=== PATIENT | male | born 1960 | race Caucasian/White ===

== ENCOUNTER 2020-02-11 15:52 | Observation (INO) | payer OTHER, SELFPAY ==
--- NOTE | ~2020-02-11 | CT_ITS ---
EXAMINATION: CTA brain carotid DATE: 02/12/2020 18:43 INDICATION: Transient ischemic attack, transient amnesia TECHNIQUE: Computed tomographic angiography (CTA) of the head was performed without and with 100 mL O mnipaque-350 intravenous contrast. CTA of the neck was performed with intravenous contrast. The dose- length product was 1973.20 mGy-cm. Maximum intensity projection and volume rendered 3D-reconstruction s were created by the technologist on a separate workstation. Automated exposure control and iterativ e reconstruction technique were employed. COMPARISON: None. FINDINGS: HEAD CTA: There is no intracranial hemorrhage, acute infarction, or abnormal mass lesion. The ventric les are normal. There is no abnormal mass effect or midline shift. The jose-white matter differentiat ion is normal. The basal cisterns are patent. The orbits are normal. There is mild mucosal thickening of the paranasal sinuses. There is no significant stenosis of the basilar artery or posterior cerebral arteries. There is no si gnificant stenosis of the intracranial internal carotid arteries or the anterior or middle cerebral a rteries. The anterior communicating artery and posterior communicating arteries are normal. There is no aneurysm. NECK CTA: There is a 5 mm nodule of the right thyroid lobe. The submandibular and parotid glands are symmetric. There is no lymphadenopathy. There are no masses identified. The airway is unremarkable. T here is mild cervical spondylosis.. The superior mediastinum is unremarkable. There is 0% stenosis of the proximal right internal carotid artery relative to normal distal artery l umen diameter (NASCET criteria). There is 0% stenosis of the proximal left internal carotid artery re lative to normal distal artery lumen diameter. IMPRESSION: 1. No acute intracranial abnormality. Normal head CTA. 2. 0% stenosis of the proximal right internal carotid artery relative to normal distal artery lumen d iameter (NASCET criteria). 3. 0% stenosis of the proximal left internal carotid artery relative to normal distal artery lumen di ameter. Reviewed, dictated and finalized at location A. IMPRESSION: 1. No acute intracranial abnormality. Normal head CTA. 2. 0% stenosis of the proximal right internal carotid artery relative to normal distal artery lumen diameter (NASCET criteria). 3. 0% stenosis of the proximal left internal carotid artery relative to normal distal artery lumen diameter.
--- NOTE | ~2020-02-11 | US_ITS ---
EXAMINATION: US carotid duplex BI DATE: 02/12/2020 10:58 INDICATION: Transient amnesia. TECHNIQUE: Grayscale, color Doppler, and pulsed Doppler images of the cervical carotid arteries were obtained. The degree of vessel stenosis is placed in one of the following categories: normal, <50%, 5 0-69%, >=70% but less than near-occlusion, near-occlusion, or total occlusion. Note that percent sten osis relative to normal distal artery lumen diameter is indirectly measured from velocity measurement s as described by Dev, et al. Radiology 2003; 229:340-346. COMPARISON: None. FINDINGS: RIGHT: The right common carotid artery (CCA) peak systolic velocity (PSV) is 81 cm/s. The right internal car otid artery (ICA) PSV is 76 cm/s. The right ICA end-diastolic velocity (EDV) is 29 cm/s. The right IC A/CCA PSV ratio is 0.9. Grayscale and color Doppler images yield an estimate of <50% diameter reducti on from plaque in the ICA. There is antegrade flow in the right vertebral artery. LEFT: The left CCA PSV is 97 cm/s. The left ICA PSV is 95 cm/s. The left ICA EDV is 45 cm/s. The left ICA/C CA PSV ratio is 1.0. Grayscale and color Doppler images yield an estimate of <50% diameter reduction from plaque in the ICA. There is antegrade flow in the left vertebral artery. IMPRESSION: 1. <50% stenosis in the right internal carotid artery. 2. <50% stenosis in the left internal carotid artery. Reviewed, dictated and finalized at location E.
--- NOTE | ~2020-02-11 | MR_ITS ---
EXAMINATION: MR brain/brain stem wo/w con DATE: 02/12/2020 10:28 INDICATION: Transient amnesia. TECHNIQUE: Magnetic resonance imaging (MRI) of the brain and brainstem was performed without and with 19 mm MultiHance intravenous contrast. Sequences included sagittal and axial T1-weighted FSE, axial diffusion-weighted FS EPI, axial T2*-weighted GRE, axial T2-weighted FLAIR Propeller, and axial T2-we ighted Propeller. Postcontrast sequences included axial and coronal T1-weighted FSE. Apparent diffusi on coefficient (ADC) maps were created. COMPARISON: None. FINDINGS: There is no intracranial hemorrhage, acute infarction, or abnormal intracranial mass lesion . The ventricles are normal in size. The paranasal sinuses are clear. The orbits are normal. The mast oid air cells are normal. IMPRESSION: 1. Normal brain. Reviewed, dictated and finalized at location E. IMPRESSION: 1. Normal brain.
--- NOTE | 2020-02-11 15:58 | ADMGEN ---
This patient, Nicko Villalobos, was admitted to Medical Room 251-. Patient/family oriented to hospital policies and general routines including ID bracelet, bed and alarms, visiting hours, pain management, procedures, bathroom and other care routines, personal items, smoking policy, room service/diet, and visiting hours. Valuables list has been completed. Information on how to activate the Rapid Response Team has been discussed. Patient/Family are encouraged to report perceived risks to care and to ask questions if they do not understand what they are told or what they should do.
[2020-02-11 16:00] VITALS: BP 125/83; PULSE 60; RESP 16; TEMP 36.6; O2SAT 97; BMI 28.0
--- NOTE | 2020-02-11 16:15 | PM.IMHP ---
H&P: HPI History of Present Illness Chief complaint: Transient amnesia. Narrative: Nicko Villalobos is a very pleasant 59-year-old male with a previous episode of transient global amnesia, hypertension, hyperlipidemia, and benign prostatic hyperplasia who is being directly admitted to the hospitalist service from the emergency department [facility] in [place] for further evaluation of transient amnesia. Due to lack of MRI at [facility] this weekend, he is being transferred to [place] in this setting for imaging. Shortly after having sexual intercourse with his , he was found staring out of their kitchen window at a large pile of rocks on their patio, confused by their presence. His reminded him that they were in the process of renovating their patio and he could not recall this fact for approximately 30 minutes time. 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 A similar episode of transient amnesia occurred after sexual intercourse in September of 2013 and he was seen by neurologist in [facility], who diagnosed him with transient global amnesia. At the time of my evaluation he has no complaints, and all memories have returned except for the 30 minute period of confusion earlier this morning. He denies headache, vertigo, auditory and visual changes, focal weakness, paresthesias, head trauma, loss of consciousness, chest pain, and palpitations. Review of Systems Review of Systems: Narrative: Twelve systems were reviewed with pertinent positives and negatives as per HPI. No fever, chills, or sweats. No recent cold or flu symptoms. He denies travel and sick contacts. No cough or shortness of breath. No history of obstructive sleep apnea. He denies lightheadedness and dizziness. Appetite has been good and weight has been stable. No nausea, vomiting, or diarrhea. No dysuria or hematuria. He reports nocturia, 1 to 2 times per night for which she takes finasteride. No thyroid disease. No history of venous thromboembolism. Except as documented, all other systems were reviewed and are negative. [facility] Past Medical History Medical History (Updated 02/11/20 @ 16:54 by Tara Leach PA-C) Benign prostatic hyperplasia Essential hypertension Hyperlipidemia Kidney stones (~11/2013) Normal cardiac stress test Transient global amnesia (10/02/13) Surgical History Surgical History (Updated 02/11/20 @ 16:54 by Tara Leach PA-C) History of left inguinal hernia repair History of lithotripsy (~11/2013) History of varicose vein stripping Family History Family History (Updated 02/11/20 @ 16:54 by Tara Leach PA-C) Mother Cerebrovascular accident Father Heart attack Sibling Breast cancer Sibling Sleep apnea Social History Social History (Updated 02/11/20 @ 16:56 by Tara Leach PA-C) Social History: Surrogate decision maker: Patsy Villalobos, spouse. Code status: Full code. Primary care provider: Dr. Philippe Mancilla. Smoking status: Never smoker Alcohol intake: current Drinks per week: 10 Alcohol use details: 10 beers per week. Substance use: never Additional living arrangements comments: The patient lives with his in [place]. They have 3 grown children. Additional occupation/education comments: Works at a [employer] in [place]. Spiritual care concerns: No Meds Home Medications and Allergies Home Medications Medication Instructions Recorded Confirmed Type aspirin 81 mg PO DAILY 02/11/20 02/11/20 History cholecalciferol (vitamin D3) 50 mcg PO DAILY 02/11/20 02/11/20 History [Vitamin D3] finasteride 5 mg PO DAILY 02/11/20 02/11/20 History losartan 100 mg PO DAILY 02/11/20 02/11/20 History naproxen 250 mg PO BID 02/11/20 02/11/20 History omega 3-hua-eok-fish oil [Fish Oil] 1 cap PO DAILY 02/11/20 02/11/20 History rosuvastatin 5 mg PO DAILY 02/11/20 02/11/20 History vitamin B co
[2020-02-11] MEDS: ASPIRIN 81 MG CHEWABLE TABLET 324 MG PO (17:02)
--- NOTE | 2020-02-11 17:17 | PC.NURSE ---
Documentation recorded by Viri Morrow RN has been reviewed by Parul Bueno RN for accuracy and completion.
[2020-02-11 20:00] VITALS: PULSE 67
[2020-02-11 22:00] VITALS: BP 118/76; PULSE 65; RESP 18; TEMP 36.1; O2SAT 96
[2020-02-12] VITALS (12 sets, daily range): BP systolic 114–133; BP diastolic 63–85; PULSE 55–73; RESP 14–20; TEMP 35.9–36.8; O2SAT 95–98
--- NOTE | 2020-02-12 08:05 | PC.NURSE ---
I received a call from MRI stating that the patient had not had a BUN and Creatinine drawn. I called Dr. Shepard and he notified me that the patient had outpatient labs drawn and they were reported in Tara Leach NP note.
[2020-02-12] MEDS: OMEGA 3 POLYUNSAT FATTY ACIDS 1 GM CAP PO (09:31)
[2020-02-12] MEDS: ROSUVASTATIN 5 MG TABLET PO (09:31)
[2020-02-12] MEDS: ASPIRIN 81 MG CHEWABLE TABLET PO (09:31)
[2020-02-12] MEDS: CHOLECALCIFEROL 1,000 UNIT TABLET 1000 UNITS PO (09:31)
[2020-02-12] MEDS: VITAMIN B COMPLEX CAPSULE 1 CAP PO (09:32)
--- NOTE | 2020-02-12 09:35 | PC.NURSE ---
To Radiology per wheelchair.
--- NOTE | 2020-02-12 09:42 | PM.IMPN ---
Progress Note: A&P Assessment and Plan (1) Transient global amnesia: Onset Date: 10/02/13 Code(s): G45.4 - Transient global amnesia Status: Acute Assessment and Plan: Symptoms were brief and have resolved completely. No focal residual findings. Follow-up on MRI, carotid and echocardiogram results. He takes a baby aspirin at home which has been continued here. He is also on Crestor which will continue here. Neurology consult. Patient does not require therapy at this time. Check lipid panel, TSH, B12. (2) Essential hypertension: Code(s): I10 - Essential (primary) hypertension Status: Acute Assessment and Plan: Blood pressure reviewed on 02/12/2020. Blood pressure well controlled. Will hold losartan since he may have had a transient hypotensive event. Check orthostatics. (3) Hyperlipidemia: Code(s): E78.5 - Hyperlipidemia, unspecified Status: Acute Assessment and Plan: Liver enzymes were normal at the outside hospital. Will resume Crestor. Check Lipid panel (4) Benign prostatic hyperplasia: Code(s): N40.0 - Benign prostatic hyperplasia without lower urinary tract symptoms Status: Acute Assessment and Plan: Stable. Will hold finasteride at this time. Monitor blood pressure. Subjective Date/time seen: 02/12/20 09:42 Interval history: 59-year-old male with hypertension and hyperlipidemia who is transferred for episode of global amnesia. This occurred after sexual intercourse. He had a prior episode in 2013 that also had occurred after sexual intercourse. Patient states his memory returned after about 10 minutes. He denies any numbness, tingling or weakness in his arms or legs at the time of the event. He does not have erectile dysfunction and does not take any medications for this. There was no chest pain, shortness of breath or palpitations. He denies having orthopnea symptoms. His speech remained clear during the event. He has had no recurrence since that time. He feels well. He slept well last night. Exam Narrative: Exam Narrative: AF 114/63 67 18 95% ra Gen - NARD Chest - CTA bilaterally, nml RR CV - RRR S1/S2 Abd - Soft, NT/ND, Positive BS Ext - No pedal edema Neuro - Alert and oriented. Nonfocal exam. Psych - Nml mood and affect Skin - Warm and dry Objective Data Vital Signs Vital Signs: Vital Signs - 24 hr 02/11/20 16:00 02/11/20 20:00 02/11/20 22:00 Temperature 97.9 F 97.0 F L Pulse Rate 60 67 65 Respiratory Rate 16 18 Blood Pressure 125/83 118/76 Pulse Oximetry 97 96 02/12/20 00:00 02/12/20 04:00 02/12/20 06:00 Temperature 98.2 F Pulse Rate 66 55 L 67 Respiratory Rate 18 Blood Pressure 114/63 Pulse Oximetry 95 Intake/Output Intake/Output: Intake & Output 02/09/20 02/10/20 02/11/20 02/12/20 23:59 23:59 23:59 23:59 Intake Total 390 630 Output Total 800 Balance 390 -170 Meds/Results Medications: Active Medications Generic Name Dose Route Start Last Admin Trade Name Freq PRN Reason Stop Dose Admin Acetaminophen 650 mg 02/11/20 16:36 Tylenol Tablet PO Q4H PRN Mild Pain (1-3) or Fever Aspirin 81 mg 02/12/20 09:00 02/12/20 09:31 Aspirin Chewable PO 81 mg DAILY REBECA Administration Fish Oil 1 gm 02/12/20 09:00 02/12/20 09:31 Lovaza PO 1 gm DAILY REBECA Administration Rosuvastatin Calcium 5 mg 02/12/20 09:00 02/12/20 09:31 Crestor PO 5 mg DAILY REBECA Administration Vitamin B Complex 1 cap 02/12/20 09:00 02/12/20 09:32 Vitamin B Complex PO 1 cap DAILY REBECA Administration Vitamin D 1,000 unit 02/12/20 09:00 02/12/20 09:31 Vitamin D PO 1,000 unit DAILY REBECA Administration Quality VTE Prophylaxis VTE prophylaxis: mechanical ordered
[2020-02-12 12:04] LABS: Cholesterol 180 mg/dL (0-200); HDL Direct 47 mg/dL; Triglycerides 125 mg/dL (<150)
[2020-02-12 12:15] LABS: LDL Cholesterol Direct 106 mg/dL
--- NOTE | 2020-02-12 17:11 | WPDNEURCNPN ---
Assessment and Plan Assessment and plan (1) Benign prostatic hyperplasia: Code(s): N40.0 - Benign prostatic hyperplasia without lower urinary tract symptoms Status: Acute (2) Hyperlipidemia: Code(s): E78.5 - Hyperlipidemia, unspecified Status: Acute (3) Essential hypertension: Code(s): I10 - Essential (primary) hypertension Status: Acute (4) Transient global amnesia: Onset Date: 10/02/13 Code(s): G45.4 - Transient global amnesia Status: Acute Additional Plan I would recommend doing the CTA of the brain and carotid and also complete echocardiogram with bubble study to complete the is stroke or TIA workup patient wants to go home and wants to have this thing as an outpatient which will be fine with me however this is important to do it as this is the 2nd episode after having had sex each time 6 years apart rest of management as such Consult date: 02/12/20 Time Seen: 16:00 HPI: Nicko Villalobos is a 59 year old male who had the 2nd episode of what sounds like transient global amnesia after having had sex which resolved in a Prieb short of period of time he does not recall having had any headache nausea vomiting chest pain or shortness of breath the previous episode happened also in the background of having had sex and was seen by a neurologist Dr. Jaramillo at [facility] as per referral by Dr. Mancilla his primary care physician he has been on aspirin since then he and his is wondering if 6 has anything to do with it and I am not entirely clear about that but this sounds like a TIA to me is better range MRI a carotid negative however to complete the workup I would recommend doing a CTA of the brain and the carotid and also echocardiogram with bubble study Review of Systems Review of Systems: All systems reviewed & are unremarkable except as noted in HPI and below PMFSH Past Medical History Medical History Benign prostatic hyperplasia Essential hypertension Hyperlipidemia Kidney stones (~11/2013) Normal cardiac stress test Transient global amnesia (10/02/13) Surgical History Surgical History History of left inguinal hernia repair History of lithotripsy (~11/2013) History of varicose vein stripping Family History Family History Mother Cerebrovascular accident Father Heart attack Sibling Breast cancer Sibling Sleep apnea Social History Social History Social History: Surrogate decision maker: Patsy Villalobos, spouse. Code status: Full code. Primary care provider: Dr. Philippe Mancilla. Smoking status: Never smoker Alcohol intake: current Drinks per week: 10 Alcohol use details: 10 beers per week. Substance use: never Additional living arrangements comments: The patient lives with his in [place]. They have 3 grown children. Additional occupation/education comments: Works at a [employer] in [place]. Spiritual care concerns: No Meds Home Medications and Allergies Home Medications Medication Instructions Recorded Confirmed Type aspirin 81 mg PO DAILY 02/11/20 02/11/20 History cholecalciferol (vitamin D3) 50 mcg PO DAILY 02/11/20 02/11/20 History [Vitamin D3] finasteride 5 mg PO DAILY 02/11/20 02/11/20 History losartan 100 mg PO DAILY 02/11/20 02/11/20 History naproxen 250 mg PO BID 02/11/20 02/11/20 History omega 4-gxu-kgs-fish oil [Fish Oil] 1 cap PO DAILY 02/11/20 02/11/20 History rosuvastatin 5 mg PO DAILY 02/11/20 02/11/20 History vitamin B complex [B 1 tablet PO DAILY 02/11/20 02/11/20 History Complex-Vitamin B12] Allergies Allergy/AdvReac Type Severity Reaction Status Date / Time No Known Allergies Allergy Unverified 11/22/13 12:36 Vital Signs Vital Signs - 24 hr 02/11/20 20:00
[2020-02-12] MEDS: CLOPIDOGREL BISULFATE 75 MG TABLET PO (18:07)
--- NOTE | 2020-02-12 19:13 | PM.DS ---
DS: Admitting Diagnosis Admitting Diagnosis Admitting Diagnosis: Transient global amnesia DS: Discharge Diagnosis Discharge Diagnosis (1) Transient global amnesia: Onset Date: 10/02/13 Code(s): G45.4 - Transient global amnesia Status: Acute Assessment and Plan: Symptoms were brief and have resolved completely. No focal residual findings. MRI brain normal. Carotid US showing <50% stenosis in the bilateral internal carotid artery. Echo was not completed since patient wanting to go home so plan for this to be done as outpatient. He takes a baby aspirin at home which was continued here. He is also on Crestor which was also continue here. Neurology consulted. CTA head/neck completed but results pending. Patient requesting discharge and is comfortable with discharge with not knowing the results. Explained we are looking for clot and aneurysm among other potential findings but he is okay with discharge. LDL 106. We advanced his Crestor to 10mg (because not very-high risk). Also plan for Plavix x 3 weeks. Echo as outpatient. Patient to follow up with neurology. TSH normal. B12 and folate pending (2) Essential hypertension: Code(s): I10 - Essential (primary) hypertension Status: Acute Assessment and Plan: Blood pressure monitored closely. Blood pressure remained well controlled. We held his losartan since he may have had a transient hypotensive event. Orthostatics BP normal. (3) Hyperlipidemia: Code(s): E78.5 - Hyperlipidemia, unspecified Status: Acute Assessment and Plan: Liver enzymes were normal at the outside hospital. We resumed Crestor as mentioned above. TG 125, TC 180, LDL 106, HDL 47. (4) Benign prostatic hyperplasia: Code(s): N40.0 - Benign prostatic hyperplasia without lower urinary tract symptoms Status: Acute Assessment and Plan: Stable. We held finateride until orthostatics were complete. DS: Summary Hospital Course Reason for hospitalization: 59yo male here for a global amnestic event. Please see H&P for details. Hospital Course: As above Time Spent with Patient Time attestation: Total time spent providing and/or coordinating discharge services:35 minutes Time spent: Greater than 30 minutes Specific discharge activities: Patient seen examined. Discussed with Neurology. Discussing discharge instructions with patient. Exam Narrative: Exam Narrative: AF 114/63 67 18 95% ra Gen - NARD Chest - CTA bilaterally, nml RR CV - RRR S1/S2 Abd - Soft, NT/ND, Positive BS Ext - No pedal edema Neuro - Alert and oriented. Nonfocal exam. Psych - Nml mood and affect Skin - Warm and dry DS: Data Data Completed and Pending Labs on day of discharge: Labs from last 24 hours 02/12/20 02/12/20 11:39 11:39 Triglycerides 125 Cholesterol 180 LDL Cholesterol Direct 106 HDL Direct 47 Vitamin B12 Pending Folate Pending TSH (Reflex) 1.080 Discharge Plan Discharge Attending physician on discharge: Jose Shepard Consulting providers: Behzad Talavera Discharging Clinician: Jose Shepard Anticipated Discharge Date/Time: 02/12/20 19:25 Patient Disposition: Home, Self-Care Activity: as tolerated Diet: heart healthy Discharge Instructions: Rise slowly from a lying or sitting position. Pause before standing or walking. Take precautions to avoid falls Please make follow-up appointment with neurologist Avoid large gatherings, wear face coverings whenin public and practice social distancing Check Blood pressure at home 1-2x per day, record and bring into your doctor for review Patient Instructions: Clopidogrel (By mouth), Pain Management (DC), Antibiotic Form Stand Alone Forms: General Discharge Information Follow-up/Referrals: Behzad Talavera MD [Physician] - Call for Appointment Charo,Philippe Malik MD [Primary Care Provider] - Call for Appointment Disch
[2020-02-13 14:22] LABS: Vitamin B12 > 1000.0 pg/mL (239-931)
--- NOTE | 2020-02-14 08:31 | PC.NURSE ---
CTA of head and neck- Normal CTA. Results called to patient. Dr. Shepard aware. B12 >1000. Folate-12. Dr. Shepard aware and results faxed to PCP.
== END 2020-02-12 20:00 | disposition home or self-care (01) ==
PROVIDERS: Admitting Provider Family Medicine; PCP Internal Medicine; Visit Provider Internal Medicine
DX: G45.4 Transient global amnesia (principal); I10 Essential (primary) hypertension; E78.5 Hyperlipidemia, unspecified; N40.0 Benign prostatic hyperplasia without lower urinary tract symptoms; Z79.82 Long term (current) use of aspirin; Z79.899 Other long term (current) drug therapy
CPT/HCPCS: 36415; 70496; 70498; 70553; 80061; 82607; 82746; 84443; 93880; A9270; A9577; G0378; Q9967

== ENCOUNTER 2020-02-16 11:26 | Outpatient (CLI) | payer OTHER, SELFPAY ==
--- NOTE | 2020-02-16 11:39 | ECHO_ITS ---
Patient Info Name: Nicko Villalobos Age: 59 years : 1960 Gender: Male Ht: 73 in Wt: 230 lbs BSA: 2.34 m2 HR: 73 bpm BP: 156 / 90 mmHg Technical Quality: Good Exam Date: 02/16/2020 11:54 AM Exam Location: [facility] Patient Status: Outpatient Admit Date: 02/16/2020 Staff Ordering Physician: Jose Shepard MD [employer]: Adwoa Pettit RDCS Attending Provider: Jose Shepard MD Exam Type: CA echo doppler w bubble study Study Info Indications G45.4 - TRANSCIENT GLOBAL AMNESIA Limited two-dimensional transthoracic echocardiogram is performed with agitated saline. Complete two-dimensional, color flow and Doppler transthoracic echocardiogram is performed. Summary 1. Left ventricular chamber dimension is normal. 2. Left ventricular systolic function is normal, estimated at 60-65%. 3. The left ventricular diastolic function is grade I diastolic dysfunction. 4. E/e' 7 is not elevated. 5. Right atrial chamber dimension is moderately enlarged. 6. Atrial septal aneurysm. 7. Agitated saline injection opacified right cardiac chambers with and without valsalva maneuver demonstrated shunting of bubbles to left sided cardiac chambers suggesting patent foramen ovale. 8. Suspected patent foramen ovale visualized by agitated saline imaging. 9. There is mild aortic valve sclerosis. 10. The mitral valve has moderately calcified annulus. 11. There is mild mitral valve regurgitation. 12. There is trace tricuspid valve regurgitation. 13. No pulmonary hypertension, estimated pulmonary arterial systolic pressure is 36 mmHg. 14. There is mild pulmonic regurgitation. Left Ventricle E/e' 7 is not elevated. Left ventricular chamber dimension is normal. Left ventricular systolic function is normal, estimated at 60-65%. The left ventricular diastolic function is grade I diastolic dysfunction. Right Ventricle Right ventricular chamber dimension is normal. Right ventricular systolic function is normal. Left Atria Left atrial chamber dimension is normal. Right Atria Right atrial chamber dimension is moderately enlarged. Atrial Septum Agitated saline injection opacified right cardiac chambers with and without valsalva maneuver demonstrated shunting of bubbles to left sided cardiac chambers suggesting patent foramen ovale. Atrial septal aneurysm. Suspected patent foramen ovale visualized by agitated saline imaging. Aortic Valve The aortic valve is trileaflet. There is mild aortic valve sclerosis. There is no aortic valve stenosis. There is no aortic valve regurgitation. Pulmonic Valve There is mild pulmonic regurgitation. Mitral Valve The mitral valve has moderately calcified annulus. There is no mitral valve stenosis. There is mild mitral valve regurgitation. Tricuspid Valve There is trace tricuspid valve regurgitation. No pulmonary hypertension, estimated pulmonary arterial systolic pressure is 36 mmHg. Pericardium/Pleural There is no pericardial effusion. Inferior Vena Cava Normal inferior vena cava with >50% collapse upon inspiration consistent with normal right atrial pressure, 5 mmHg. Aorta The aortic root size at the sinus of Valsalva is normal. Left Ventricular Outflow Tract Name Value Normal LVOT 2D
== END 2020-02-16 11:27 | disposition home or self-care (01) ==
PROVIDERS: PCP Internal Medicine; Visit Provider Internal Medicine
DX: G45.4 Transient global amnesia (principal); I08.3 Combined rheumatic disorders of mitral, aortic and tricuspid valves
CPT/HCPCS: 93306; 96375

== ENCOUNTER 2020-07-04 11:33 | Outpatient (CLI) | payer OTHER, SELFPAY ==
--- NOTE | ~2020-07-04 | US_ITS ---
EXAMINATION:US venous doppler LE LT INDICATION:Left lower extremity edema TECHNIQUE: Multiple grayscale, color flow and Doppler images of the left lower extremity deep venous systems were obtained and reviewed. COMPARISON:No prior studies for comparison. FINDINGS: The common femoral, superficial femoral and popliteal veins demonstrate normal respiratory variation, augmentation and compressibility. There is deep venous thrombosis in one of the left peron eal veins and the left posterior tibial vein. IMPRESSION: 1: Left lower extremity deep venous thrombosis of the left peroneal and posterior tibial veins. Dr. Aiken discussed with Dr. Sb Shabazz DO at 07/04/2020 12:39 [facility]. Reviewed, dictated and finalized at location A. [facility] IMPRESSION: 1: Left lower extremity deep venous thrombosis of the left peroneal and posteri or tibial veins. Dr. Aiken discussed with Dr. Sb Shabazz DO at 07/04/2020 12:39 [facility].
== END 2020-07-04 11:34 | disposition home or self-care (01) ==
PROVIDERS: PCP Internal Medicine; Visit Provider Internal Medicine Cardiovascular Disease
DX: R60.0 Localized edema (principal); I82.452 Acute embolism and thrombosis of left peroneal vein; I82.442 Acute embolism and thrombosis of left tibial vein
CPT/HCPCS: 93971

== ENCOUNTER 2022-09-30 08:32 | Outpatient (CLI) | payer OTHER, SELFPAY ==
--- NOTE | 2022-09-30 08:36 | EST_ITS ---
Patient Info Name: Nicko Villalobos Age: 62 years : 1960 Gender: Male Ht: 74 in Wt: 205 lbs BSA: 2.21 m2 HR: 71 bpm BP: 120 / 84 mmHg Heart Rhythm: Sinus Arrhythmia Exam Date: 09/30/2022 8:46 AM Exam Location: [facility] Stress Patient Status: Outpatient Admit Date: 09/30/2022 Staff Ordering Physician: Sb Shabazz DO Attending Provider: Sb Shabazz DO Exercise Technologist: Marge Hogan CT Exercise Physician: Sb Shabazz DO Exam Type: CA stress test treadmill Study Info Indications R06.09 - Other forms of dyspnea A treadmill exercise stress test was performed. Summary 1. 1. Negative [place] exercise stress test for ischemic ST changes by ECG criteria. 2. 2. Reduced functional capacity, achieving 8.9 METs of workload. 3. 3. Frequent ventricular ectopies. 4. 4. Appropriate HR response to exercise. 5. 5. Appropriate HR recovery at 1 minute post exercise. 6. 6. No imaging with stress testing. 7. 7. Patient informed of the above results. Protocol: [place] Stress ECG Details Stage: REST Duration (min): 0 min : 55 sec Speed (mph): 0.0 Grade (%): 0 HR (bpm): 68 SBP (mmHg): 120 DBP (mmHg): 84 METS: --- Stage: REST Duration (min): 4 min : 38 sec Speed (mph): 0.0 Grade (%): 0 HR (bpm): 69 SBP (mmHg): 120 DBP (mmHg): 84 METS: --- Stage: STAGE 1 Duration (min): 1 min : 0 sec Speed (mph): 1.7 Grade (%): 10 HR (bpm): 100 SBP (mmHg): 120 DBP (mmHg): 84 METS: --- Stage: STAGE 1 Duration (min): 2 min : 0 sec Speed (mph): 1.7 Grade (%): 10 HR (bpm): 116 SBP (mmHg): 120 DBP (mmHg): 84 METS: --- Stage: STAGE 1 Duration (min): 3 min : 0 sec Speed (mph): 1.7 Grade (%): 10 HR (bpm): 120 SBP (mmHg): 161 DBP (mmHg): 68 METS: --- Stage: STAGE 2 Duration (min): 1 min : 0 sec Speed (mph): 2.5 Grade (%): 12 HR (bpm): 127 SBP (mmHg): 161 DBP (mmHg): 68 METS: --- Stage: STAGE 2 Duration (min): 2 min : 0 sec Speed (mph): 2.5 Grade (%): 12 HR (bpm): 130 SBP (mmHg): 134 DBP (mmHg): 73 METS: --- Stage: STAGE 2 Duration (min): 3 min : 0 sec Speed (mph): 2.5 Grade (%): 12 HR (bpm): 132 SBP (mmHg): 134 DBP (mmHg): 73 METS: --- Stage: STAGE 3 Duration (min): 1 min : 0 sec Speed (mph): 3.4 Grade (%): 14 HR (bpm): 135 SBP (mmHg): 152 DBP (mmHg): 54 METS: --- Stage: STAGE 3 Duration (min): 1 min : 0 sec Speed (mph): 3.4 Grade (%): 14 HR (bpm): 135 SBP (mmHg): 152 DBP (mmHg): 54 METS: --- Stage: RECOVERY Duration (min): 0 min : 59 sec Speed (mph): 0.0 Grade (%): 0 HR (bpm): 115 SBP (mmHg): 152 DBP (mmHg): 54 METS: --- Stage: RECOVERY Duration (min): 1 min : 59 sec Speed (mph): 0.0 Grade (%): 0 HR (bpm): 109 SBP (mmHg): 152 DBP (mmHg): 54
== END 2022-09-30 08:33 | disposition home or self-care (01) ==
LOC: ANHCARD 08:34
PROVIDERS: PCP Physician Assistant Medical; Visit Provider Internal Medicine Cardiovascular Disease
DX: R06.09 Other forms of dyspnea (principal)
CPT/HCPCS: 93017

== ENCOUNTER 2025-07-03 09:51 | Outpatient (CLI) | payer MEDICARE, SELFPAY ==
[2025-07-03 12:04] LABS: MRSA (PCR) NOT DETECTED (NOT DETECTE)
== END 2025-07-03 09:52 | disposition home or self-care (01) ==
LOC: ANHSURGERY 09:55
PROVIDERS: PCP Physician Assistant Medical; Visit Provider Orthopaedic Surgery
DX: M17.12 Unilateral primary osteoarthritis, left knee (principal); Z01.818 Encounter for other preprocedural examination; I82.442 Acute embolism and thrombosis of left tibial vein
CPT/HCPCS: 80307; 87641